=== PATIENT | female | born 1975 | race African-American/Black ===

== ENCOUNTER 2021-07-16 22:18 | Emergency (ER) | payer SELFPAY ==
[2021-07-16] MEDS ORDERED: Lidocaine Viscous Sol 2% 15 ml UD Cup ONE ×2 (22:34→22:43)
== END 2021-07-16 23:28 | disposition home or self-care (01) ==
LOC: ERS 22:18
DX: T16.2XXA Foreign body in left ear, initial encounter (principal); W45.8XXA Other foreign body or object entering through skin, initial encounter; Z87.891 Personal history of nicotine dependence
CPT/HCPCS: 69200